=== PATIENT | female | born 1990 | race Caucasian/White ===

== ENCOUNTER 2017-11-29 04:00 | Inpatient (IN) ==
[2017-11-29] MEDS ORDERED: miSOPROStol 25 MCG TABLET ONE (05:00)
[2017-11-29] MEDS ORDERED: miSOPROStol 25 MCG TABLET PO ONE (11:29)
[2017-11-29] MEDS ORDERED: Oxytocin 20 units/ LR 1000 mL 20 UNIT/1,000 ML BAG IVC ONE (12:18)
[2017-11-29] MEDS ORDERED: Ringers Solution, Lactated 1,000 ML ONE ×3 (12:18→22:42)
[2017-11-29] MEDS ORDERED: miSOPROStol 25 MCG TABLET VG PRN (12:32)
[2017-11-29] MEDS ORDERED: Oxytocin 20 units/ LR 1000 mL 20 UNIT/1,000 ML BAG IVC SCH (12:45)
--- NOTE | 2017-11-29 12:45 | OB/GYN History & Physical ---
Date of Encounter: 11/29/17 Time of Encounter: 12:43 Assessment and Plan (1) Elective induction of labor planned Current visit: Yes Status: Acute 27 y/o @ 40+2 weeks IOL, GBS neg she has received cytotec x 25mcg per vagina x 1, she is now on pitocin monitor strip, anticipate History of Present Illness HPI: Ms. Bolden is a 27 year old female @ 40+ 2 weeks who presents to the office for IOL. She does not report LOF, VB or ctxs, feels good FM, GBS neg. Aside from gallbladder issues, her course was uncomplicated. Past Med Surg Social Fam HX - Past Medical History Medical history: no medical history Psychiatric history: anxiety - Past Surgical History Surgical History: no surgical history - Social History Smoking Status: Never smoker Alcohol use: none Drug use: none - Family History Father Living Status: Still Living Hx Family Cardiac Disorders: Yes (HTN) Hx Family Respiratory Disorders: No Hx Family Cancer: No Hx Family GI Disorders: No Hx Family Genitourinary Disorders: No Hx Family Endocrine Disorder: Yes (DM) Hx Family Musculoskeletal Disorders: No Hx Family Neuromuscular Disorders: No Hx Family Neurologic Disorders: No Hx Family HEENT Disorders: No Hx Family Autoimmune Disorders: No Hx Family Reproductive Disorders: No Hx Family Psychosocial Disorders: No Hx Family Medical Disorders: No Obstetrical History - Pregnancies : 1 Para: 0 Medications and Allergies Vits #90/Iron Fum/FA [ Formula Tablet] 1 tab PO DAILY 11/29/17 [History] Allergy/AdvReac Type Severity Reaction Status Date / Time No Known Allergies Allergy Verified 07/17/17 10:42 Review of System OB All systems PM: reviewed and no additional remarkable complaints except as stated Exam - Constitutional Constitutional: no acute distress - HEENT HEENT: PERRL - Neck Neck exam: full ROM - Lungs Respiratory exam: CTAB - Cardiovascular Cardiovascular exam: RRR - Abdomen Abdomen: Present: gravid - Cervix Dilation: 2 Results All other labs normal.
--- NOTE | 2017-11-29 14:58 | OB Labor Progress Note ---
Date of Encounter: 11/29/17 Time of Encounter: 14:56 Labor Progress Note - Subjective Subjective: Dr. Sanches called, requesting a louis catheter to be placed IOL on his patient. Discussed POC and procedure with patient. Patient denies any questions or concerns. - Cervix Cervix: 2/70/-1 - Heart Tones Heart Tones: 135 bpm moderate variability +15x15 accels no decels noted. Cat. 1 tracing. - [place]: 1.5-4 min apart - Interventions Interventions: SVE, Placement of louis catheter successful. 40cc sterile water placed in balloon. Patient tolerated well. - Plan Plan: Continue labor management Patient may have Nubain or epidural when desires Dr. Sanches updated on patient's status.
[2017-11-29] MEDS ORDERED: *HR* Nalbuphine 10 MG/ML AMPUL IVP ONE (14:59)
[2017-11-29 18:16] LABS: Basophils % 0.3 %; Eosinophils # 0.1 K/mcL (0.0-0.6); Eosinophils % 1.2 %; Hematocrit 32.8 % (35.3-44.9); Hemoglobin 11.1 g/dL (11.5-15.4); Immature Granulocytes % 0.7 % (0-4); Immature Platelets 8.7 % (1.1-6.1); Lymphocytes # 1.9 K/mcL (0.6-4.6); Lymphocytes % 15.6 %; Mean Corpuscular HGB Conc 33.8 g/dL (31.6-35.5); Mean Corpuscular Hemoglobin 29.3 pg (28.0-33.3); Mean Corpuscular Volume 86.5 fL (83.0-100.0); Mean Platelet Volume 11.1 fL (9.4-12.4); Monocytes # 0.9 K/mcL (0.0-1.3); Monocytes % 7.1 %; Platelet Count 256 K/mcL (140-400); Red Blood Count 3.79 M/mcL (3.82-4.97); Red Cell Distribution Width 14.1 % (11.5-14.5); Segmented Neutrophils % 75.1 %
--- NOTE | 2017-11-29 18:33 | OB Labor Progress Note ---
Date of Encounter: 11/29/17 Time of Encounter: 18:30 Labor Progress Note - Subjective Subjective: patient is doing well - Vital Signs Vital Signs: VSS - Cervix Cervix: 5cm - Heart Tones Heart Tones: CAT 1 - [place] Col[place]: Q1-4 - Plan Plan: continue pitocin, now on 4 ok for epidural if she desires anticipate
[2017-11-29] MEDS ORDERED: Epidural Premix (fent/bupiv) 110 ML EP SCH (18:45)
--- NOTE | 2017-11-29 18:45 | Anesthesia Evaluation PreOp ---
Addendum entered and electronically signed by Rosanna Rivera CRNA 12/07/17 12:20: Addendum entered and electronically signed by Kai Smith CRNA 11/30/17 15: 01: Notified around 2:15p that Dr. Sanches will be performing C section for arrest of descent. Spoke with patient regarding her anesthestic options: epidural vs. GETA and patient prefers epidural plan A, GETA plan B. Verbal consent obtained. Patient appears comfortable with new GURINDER in place. VSS. 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) Other Medical History: Denies Any Significant HX : Yes Test: Positive Alcohol Use: none Drug use: none Medications and Allergies Vits #90/Iron Fum/FA [ Formula Tablet] 1 tab PO DAILY 11/29/17 [History] Allergy/AdvReac Type Severity Reaction Status Date / Time No Known Allergies Allergy Verified 07/17/17 10:42 - Meds/Allergy Pre-op Review Medications Reviewed: Yes Allergies Reviewed: Yes Beta Blockers on Current Med List: No Anesthesia Results - Labs 11/29/17 05:50 Anesthesia Exam - HEENT Pupil (Motor): Pupils equal Mallampati: II Teeth: Normal Oral Opening: Greater than 3 - LONG TERM CARE SOCIAL WORKER LOC: Oriented LONG TERM CARE SOCIAL WORKER Motor: Normal RUE, Normal LUE, Normal RLE, Normal LLE, Normal Face LONG TERM CARE SOCIAL WORKER Sensory: Normal: RUE, LUE, RLE, LLE, Face - Cardiac Rhythm: Regular Murmur: None JVD: No Carotid Bruit: No - Pulmonary Breath Sounds: bilateral Clear Respiratory Effort: Symmetrical Anesthesia Assess/Plan ASA Score: 2 Modified Leroy Scale for Level of Consciousness: Cooperative, oriented, and tranquil Anesthetic Plan: Regional Autologous Blood: No Monitoring Plan: Standard Monitors
--- NOTE | 2017-11-29 19:22 | OB Labor Progress Note ---
Date of Encounter: 11/29/17 Time of Encounter: 19:20 Labor Progress Note - Subjective Subjective: patient is doing well - Vital Signs Vital Signs: VSS - Cervix Cervix: 5cm/80% - Heart Tones Heart Tones: CAT 1 - [place]: irregular - Plan Plan: ok for epidural, AROM'ed with clear fluid anticipate
[2017-11-29 19:28] LABS: Amphetamine Screen,Urine Negative ng/mL (Cutoff=1000); Barbiturate Screen,Urine Negative ng/mL (Cutoff=200)
[2017-11-29 19:29] LABS: Benzodiazepines Screen,Urine Negative ng/mL (Cutoff=300); Cannabinoid Screen,Urine Negative ng/mL (Cutoff = 50); Cocaine Screen,Urine Negative ng/mL (Cutoff= 300); Opiate Screen,Urine Negative ng/mL (Cutoff=300); Phencyclidine Screen,Urine Negative ng/mL (Cutoff=25)
[2017-11-29] MEDS ORDERED: Bupivacaine-MPF 0.25% 10 ML VIAL ONE (20:15)
[2017-11-29] MEDS ORDERED: *HR* FentaNYL (PF) 100 MCG/2 ML VIAL ONE (20:16)
--- NOTE | 2017-11-29 20:54 | Anesthesia Procedures ---
Date of Encounter: 11/29/17 Time of Encounter: 20:20 (GURINDER completed at 2042) Procedures: Anesthesia - Epidural/Spinal Patient ID/Chart reviewed: Yes Patient examined: Yes OB Eval: Gestational age: 40.2 OB Eval: : 1 OB Eval: Hx Para: 0 OB Eval: Contractions: Non-stressed pattern Consent Obtained: Yes Site Prep: Aseptic Technique, Sterile prep and drape, Povidone-Iodine 1% Patient position: upright Amount of Local Anesthetic used: 3 Touhy Needle Gauge: 18 Touhy Needle Depth (cm): 6 Catheter Depth at Skin (cm): 8 Test Dose (1.5% Lido + Epi): Volume given (mls): 3 Test Dose Result: Negative Loading Dose: 0.25% Marcaine (mls): 8 Loading Dose: Fentanyl (mcg): 100 Loading Dose: Other: nacl 10ml Loading Dose Administered: Thru Catheter Infusion Rate (mls/hr): [address]: Tegaderm Interspace Used: L4-L5 Loss of Resistance (VANNA): Yes Blood: No CSF: No Paresthesia: No Procedure: GURINDER with ease no adverse effects. tolerated procedure well. VSS and FHTS throughout. see nursing record. states no pain with contractions after epidural placement.
--- NOTE | 2017-11-29 22:44 | OB Labor Progress Note ---
Date of Encounter: 11/29/17 Time of Encounter: 22:42 Labor Progress Note - Subjective Subjective: patient doing well - Vital Signs Vital Signs: VSS - Cervix Cervix: 5 - Heart Tones Heart Tones: CAT 1 - Plan Plan: cont pitocin (now @ 8) anticipate
[2017-11-29] MEDS ORDERED: Famotidine 20 MG/2 ML VIAL IVP PRN (22:55)
[2017-11-29] MEDS ORDERED: Naloxone 0.4 MG/ML INJ IVP PRN (22:55)
[2017-11-29] MEDS ORDERED: Metoclopramide 10 MG/2 ML VIAL IVP PRN (22:55)
[2017-11-29] MEDS ORDERED: Ringers Solution, Lactated 1,000 ML IVC SCH (23:00)
[2017-11-29] MEDS: Ondansetron 4 MG/2 ML VIAL IVP PRN (23:08)
--- NOTE | 2017-11-30 05:23 | OB Labor Progress Note ---
Date of Encounter: 11/30/17 Time of Encounter: 05:22 Labor Progress Note - Subjective Subjective: patient is comfortable, fully dilated - Vital Signs Vital Signs: VSS - Cervix Cervix: fully dilated - Heart Tones Heart Tones: CAT 1 - Plan Plan: allow to labor down, anticipate
[2017-11-30] MEDS ORDERED: Acetaminophen 325 MG TABLET PO ONE (07:01)
[2017-11-30] MEDS ORDERED: Piperacillin/Tazobactam 3.375 GM in 0.9 % Sodium Chloride Mini Bag 100 ML IVPB SCH (08:40)
[2017-11-30] MEDS ORDERED: *HR* FentaNYL (PF) 100 MCG/2 ML VIAL ONE ×2 (09:17→11:57)
[2017-11-30] MEDS ORDERED: Lidocaine -MPF 2% 5 ML VIAL ONE ×2 (09:17→11:58)
--- NOTE | 2017-11-30 09:26 | OB Labor Progress Note ---
Date of Encounter: 11/30/17 Time of Encounter: 09:24 Labor Progress Note - Subjective Subjective: she was pushing and had a period of late decels - Vital Signs Vital Signs: temp 101 - Cervix Cervix: fully - Heart Tones Heart Tones: CAt 2 tracing - Plan Plan: pitocin stopped, oxygen, maternal positioning, heart rate recovered, Zosyn to start for fevers of 101
--- NOTE | 2017-11-30 09:43 | Anesthesia Progress Note ---
Date of Encounter: 11/30/17 Time of Encounter: 09:40 Anesthesia Note - Note Note: Called to patient bedside to evaluate breakthrough labor pain. Patient reports pain as 10/10 RLQ with contractions. Catheter appears to have been inadvertantly withdrawn to 6cm and clear fluid noted to be leaking around catheter insertion site. Was able to advance catheter to 7cm ronald. 50mcg fentanyl + 10mL of 2% administered. No fluid noted to be leaking out during administration. Patient does report mild improvement in pain score. Unable to administer any more meds because of SBP in the 90s. 11/30/17 09:40
[2017-11-30] MEDS: Ondansetron 4 MG/2 ML VIAL IVP PRN (11:39)
[2017-11-30] MEDS ORDERED: Lidocaine 1% 20 ML MDV ONE (11:57)
[2017-11-30] MEDS ORDERED: Lidocaine -MPF 1% 5 ML AMPUL ONE (11:58)
--- NOTE | 2017-11-30 12:59 | OB Labor Progress Note ---
Date of Encounter: 11/30/17 Time of Encounter: 12:54 Labor Progress Note - Subjective Subjective: Patient is still pushing. She has been pushing since 7-8AM but with many periods of rest. Epidural has been turned down. - Vital Signs Vital Signs: VSS - Cervix Cervix: +1 - Heart Tones Heart Tones: CAT 1 - Plan Plan: From the last time I checked her at 9AM, it looks like the station has not moved, I did an U/S and fetus is OP, I counseled the patient that seeing how long she has been pushing, I will give her another hr and if no progress, I recommended a with indication as arrest of descent, she agrees. The bladder louis was at the urethra when I examined her and had bruised the urethra so I removed it.
--- NOTE | 2017-11-30 14:01 | Anesthesia Progress Note ---
Date of Encounter: 11/30/17 Time of Encounter: 13:00 Anesthesia Note - Note Note: Called to patient bedside to evaluate breakthrough pain. 50mcg fentanyl administered through catheter with no relief in pain. With catheter at 6cm ronald at skin, determined tip to no longer be in epidural space so decision made to remove catheter. after explaining R/B/A of new catheter placement, patient agrees to proceed with another GURINDER placement. VSS 11/30/17 13:59
--- NOTE | 2017-11-30 14:04 | Anesthesia Procedures ---
Date of Encounter: 11/30/17 Time of Encounter: 14:02 Procedures: Anesthesia - Epidural/Spinal Patient ID/Chart reviewed: Yes Patient examined: Yes OB Eval: Gestational age: 40 weeks 3 days OB Eval: : 1 OB Eval: Hx Para: 0 OB Eval: Dilated at (cm): 10 OB Eval: Contractions: Non-stressed pattern Consent Obtained: Yes Supplemental Oxygen: None/Room Air Site Prep: Aseptic Technique, Sterile prep and drape, Povidone-Iodine 1% Patient position: upright Local Anesthetic: Lidocaine 1% Amount of Local Anesthetic used: 3 Touhy Needle Gauge: 18 Touhy Needle Depth (cm): 5 Catheter Depth at Skin (cm): 10 Test Dose (1.5% Lido + Epi): Volume given (mls): 5 Test Dose Result: Negative Loading Dose: Fentanyl (mcg): 100 Loading Dose: Other: 10mL of 1% lidocaine Loading Dose Administered: Thru Catheter Infusion Rate (mls/hr): [address]: Tegaderm, Tape Interspace Used: L4-L5 Loss of Resistance (VANNA): Yes Blood: No CSF: No Paresthesia: No Procedure: successful on 1st interspace; patient tolerated procedure well; VSS Vitals + FHT's: see Juani DELGADO's electronic records for VS entry
[2017-11-30] MEDS ORDERED: Ringers Solution, Lactated 1,000 ML ONE (14:24)
[2017-11-30] MEDS ORDERED: *HR* Oxytocin 10 UNIT/ML VIAL IM ONE (14:47)
[2017-11-30] MEDS ORDERED: Naloxone 0.4 MG/ML INJ IVP PRN ×2 (15:03→18:05)
[2017-11-30] MEDS ORDERED: Ondansetron 4 MG/2 ML VIAL IVP PRN ×2 (15:03→18:05)
[2017-11-30] MEDS ORDERED: Acetaminophen IV 1,000 MG/100 ML INFUS..BTL IVPB ONE (15:03)
[2017-11-30] MEDS ORDERED: *HR* Promethazine 25 MG/ML VIAL IVP PRN (15:03)
[2017-11-30] MEDS ORDERED: *HR* OxyCODONE Immed Rel 5 MG TABLET PO PRN (15:03)
[2017-11-30] MEDS ORDERED: *HR* HYDROmorphone 2 MG TABLET PO PRN (15:03)
[2017-11-30] MEDS ORDERED: *HR* Morphine Sulfate/PF 10 MG/10 ML AMPUL ONE (15:06)
[2017-11-30] MEDS ORDERED: *HR* Phenylephrine 10 MG/ML VIAL ONE (15:34)
--- NOTE | 2017-11-30 16:16 | Anesthesia Evaluation Post Op ---
Date of Encounter: 11/30/17 Time of Encounter: 16:15 - Vital Signs Vital Signs: 109/72, HR 117, SpO2 96%, T98.5F, RR 18 - Lungs Lungs: Clear Ascult./Percussion - Airway Airway: Non-obstructed - Cardiovascular Regular Rate - Mental Status Mental Status: Alert & Oriented, Answers Appropriately - Pain Pain Scale: 0 Pain Scale used: Numeric (1 - 10) - Nausea Vomiting Nausea Vomiting: Not Present - Hydration Hydration: NPO, Obrien catheter - Discharge PostOp Status: Transfer Patient to floor
--- NOTE | 2017-11-30 16:35 | OB/GYN Procedure Note ---
Section - Date of procedure: 11/30/17 Preop diagnosis: arrest of descent Post-op diagnosis: same Procedure: primary low transverse Surgeon: Leia Sanches Was there an bus assistant present: Yes Wrestling Coach: Vicki Dennis Anesthesia Type: Epidural section complications: none Disposition: L&D Recovery Room Specimens: Placenta, Cord segment - Narrative Narrative: The patient was taken to the operating room where epidural anesthesia was found to be adequate. The patient was prepped and draped in the usual sterile fashion in the dorsal supine position with a left-salas tilt. A Pfannenstiel skin inci lynne was made with the scalpel and carried through to the underlying layer of fascia. The fascia was incised in the midline and extended laterally bluntly. The superior aspect of the fascial incision was elevated, and the underlying rectus muscles were dissected off bluntly. Attention was then turned to the inferior aspect of the fascial incision and the underlying rectus muscles were dissected off bluntly as well. The rectus muscles were dissected in the midline. The peritoneum was bluntly dissected, entered, and extended superiorly and inferiorly with good visualization of the bladder. The bladder blade was inserted. The lower uterine segment was incised in a transverse fashion using the scalpel and extended using manual traction. Meconium stained fluid was noted. The was subsequently delivered atraumatically. The cord was clamped and cut. The infant was subsequently handed to the awaiting nursery nurse. The uterus was exteriorized and cleared of all clots and debris. The nicole rine incision was repaired in 2 layers using 0 vicryl suture. Hemostasis was visualized. The uterus was returned to the abdomen. The uterine incision was reexamined and was noted to be hemostatic. The fascia was closed with 0 Vicryl, the subcutaneous layer was closed with 3-0 vicryl, and the skin was closed with 4-0 vicryl. Sponge, lap, and instrument counts were correct x2. The patient was stable at the completion of the procedure and was subsequently transferred to the recovery room in stable condition.
[2017-11-30] MEDS ORDERED: Sennosides 8.6 MG TABLET PO PRN (18:05)
[2017-11-30] MEDS ORDERED: Simethicone 80 MG TAB.CHEW PO PRN (18:05)
[2017-11-30] MEDS ORDERED: Metoclopramide 10 MG/2 ML VIAL IVP PRN (18:05)
[2017-11-30] MEDS: Oxytocin 20 units/ LR 1000 mL 20 UNIT/1,000 ML BAG IVC SCH (18:44)
[2017-11-30] MEDS: *HR* HYDROmorphone (PF) 1 MG/ML SYRINGE IVP PRN (19:14)
[2017-12-01] MEDS: *HR* HYDROmorphone (PF) 1 MG/ML SYRINGE IVP PRN ×2 (00:02→06:30)
[2017-12-01] MEDS: *HR* OxyCODONE/APAP 5/325 TABLET PO PRN ×3 (02:16→13:56)
[2017-12-01 02:58] LABS: Basophils # 0.1 K/mcL (0.0-0.2); Basophils % 0.3 %; Eosinophils % 0.2 %; Hematocrit 32.2 % (35.3-44.9); Hemoglobin 10.9 g/dL (11.5-15.4); Immature Granulocytes % 0.5 % (0-4); Lymphocytes # 1.3 K/mcL (0.6-4.6); Lymphocytes % 5.5 %; Mean Corpuscular HGB Conc 33.9 g/dL (31.6-35.5); Mean Corpuscular Hemoglobin 28.6 pg (28.0-33.3); Mean Platelet Volume 11.2 fL (9.4-12.4); Monocytes % 3.6 %; Platelet Count 238 K/mcL (140-400); Red Blood Count 3.81 M/mcL (3.82-4.97); Red Cell Distribution Width 14.4 % (11.5-14.5); Segmented Neutrophils % 89.9 %
[2017-12-01 02:59] LABS: Eosinophils # 0.1 K/mcL (0.0-0.6); Mean Corpuscular Volume 84.5 fL (83.0-100.0); Monocytes # 0.8 K/mcL (0.0-1.3)
[2017-12-01] MEDS: Oxytocin 20 units/ LR 1000 mL 20 UNIT/1,000 ML BAG IVC SCH (03:56)
[2017-12-01] MEDS: Ibuprofen 600 MG TABLET PO PRN ×2 (03:57→17:26)
[2017-12-01] MEDS: Prenatal Vit/FA 1 EACH TABLET PO SCH (08:14)
--- NOTE | 2017-12-01 09:30 | OB/GYN Progress Note ---
Date of Encounter: 12/01/17 Time of Encounter: 09:27 - Assessment and Plan (1) Status post primary low transverse section Current Visit: Yes Status: Acute patient is postop day one meeting day 1 milestones continue routine postop/ care (2) Breast feeding status of mother Current Visit: Yes Status: Acute consult prn Subjective - Subjective Principal diagnosis: status post primary Interval history: Patient sitting up in bed. Patient voiding without difficulty. Patient reports pain is well controlled with pain medication. Patient is tolerating regular diet. Patient reports passing flatus. Patient reports: appetite normal, voiding normally, pain well controlled, ambulating normally : doing well, nursing well Objective - Vital Signs Latest vital signs: Vital Signs Temp Pulse Pulse Resp BP Pulse Ox 12/01/17 09:00 128 20 109/76 97 12/01/17 08:19 117 17 12/01/17 07:00 98 F 125 20 109/64 94 12/01/17 05:34 98.3 F 131 14 109/61 94 12/01/17 03:07 71 18 123/71 97 12/01/17 02:00 98.5 F 140 14 124/71 93 12/01/17 00:00 98.6 F 137 14 119/70 97 11/30/17 21:16 120 120 18 129/74 95 11/30/17 20:00 97.6 F 120 14 117/71 96 11/30/17 19:15 98.3 F 96 96 16 112/78 98 11/30/17 18:30 100 11/30/17 18:00 98.9 F 110 16 123/73 96 Intake and Output 11/30/17 12/01/17 12/01/17 23:59 07:59 15:59 Intake Total 1000 / 1000 240 / 240 Output Total 200 / 200 200 / 200 Balance -200 / -200 1000 / 1000 40 / 40 Intake: IV Fluids 1000 / 1000 Pitocin 20 unit In 1,000 ml @ 1000 / 1000 125 mls/hr IVC .Q8H NADIA Rx#: [id number] Oral 240 / 240 Output: Urine 200 / 200 Catheter 200 / 200 Other: Meal Breakfast Percent of Meal Consumed 100% Stool Characteristics Normal for Patient Weight 101.7 kg 221.5 kg Patient Weight 12/01/17 23:59 Weight 221.5 kg - Exam Lungs: bilateral: normal Chest: Normal S1, Normal S2 Extremities: Present: normal Abdomen: Present: normal appearance, soft Incision: Present: normal, dry, intact, dressed (medipore dressing) Fundal Height: 2 (U/2) Comments: lochia is light without clots - Labs Labs: Laboratory Results - last 24 hr 12/01/17 02:43 WBC 23.3 H D RBC 3.81 L Hgb 10.9 L Hct 32.2 L MCV 84.5 MCH 28.6 MCHC 33.9 RDW 14.4 Plt Count 238 MPV 11.2 Immature Gran % 0.5 Seg Neutrophils % 89.9 Lymphocytes % 5.5 Monocytes % 3.6 Eosinophils % 0.2 Basophils % 0.3 Neutrophils # 21.0 H Lymphocytes # 1.3 Monocytes # 0.8 Eosinophils # 0.1 Basophils # 0.1
[2017-12-01 09:42] LABS: Basophils # 0.1 K/mcL (0.0-0.2); Basophils % 0.3 %; Eosinophils # 0.1 K/mcL (0.0-0.6); Eosinophils % 0.4 %; Hematocrit 34.2 % (35.3-44.9); Hemoglobin 11.4 g/dL (11.5-15.4); Immature Granulocytes % 0.8 % (0-4); Lymphocytes # 1.5 K/mcL (0.6-4.6); Lymphocytes % 6.2 %; Mean Corpuscular HGB Conc 33.3 g/dL (31.6-35.5); Mean Corpuscular Hemoglobin 28.6 pg (28.0-33.3); Mean Corpuscular Volume 85.9 fL (83.0-100.0); Mean Platelet Volume 11.4 fL (9.4-12.4); Monocytes # 0.9 K/mcL (0.0-1.3); Monocytes % 3.8 %; Platelet Count 262 K/mcL (140-400); Red Blood Count 3.98 M/mcL (3.82-4.97); Red Cell Distribution Width 14.4 % (11.5-14.5); Segmented Neutrophils % 88.5 %
[2017-12-01] MEDS: Acetaminophen 325 MG TABLET PO PRN ×2 (12:00→20:21)
--- NOTE | 2017-12-01 13:19 | Event Note ---
Date of Encounter: 12/01/17 Time of Encounter: 13:17 Notified of patient's heart rate. Patient is afebrile. Denies any chest pain or shortness of breath. Discussed Vital signs with Dr. Moreno. Per Dr. Moreno's recommendation Will start Antibiotics and if patient continues to be tachycardic will add a consult to the hospitalist.
[2017-12-01] MEDS: Azithromycin 250 MG TABLET PO SCH (13:56)
[2017-12-01] MEDS: CeFAZolin Premix DUPLEX 2,000 MG/50 ML BAG IVPB SCH ×2 (13:57→21:19)
[2017-12-01] MEDS ORDERED: Isovue-370 500 ML INFUS..BTL IV ONE (21:27)
--- NOTE | 2017-12-01 21:59 | Internal Medicine Consult Note ---
Date of Encounter: 12/01/17 Time of Encounter: 21:10 - Assessment and plan (1) Pleuritic chest pain Current Visit: Yes Status: Acute Assessment and plan: 1. Strong clinical suspicion for PE. 2. I ordered STAT CTA chest -- suboptimal study. No central PE, but peripheral PE not excluded. 3. I called and discussed with Dr. Moreno after above findings. Given a high clinical index of suspicion for PE, I am inclined to start heparin drip. He concurs and agrees with my recommendation. I called and spoke with RN asking her to monitor for any increased vaginal bleeding or bleeding from wound. 4. Doppler of legs ordered. 5. Repeat CTA vs V/Q scan may be necessary. (2) Pneumonia Current Visit: Yes Status: Suspected Assessment and plan: 1. Given fever, chest pain, leukocytosis, and vague cough, I am ordering blood culture and antibiotics to cover suspected pneumonia. 2. Oxygen as needed for support. 3. Will order albuterol PRN wheezing. Qualifiers: Pneumonia type: due to unspecified organism Laterality: unspecified laterality Lung location: unspecified part of lung Qualified Code(s): J18.9 - Pneumonia, unspecified organism (3) S/P Current Visit: Yes Status: Acute Assessment and plan: 1. Will defer to WELDING ENGINEER. (4) DVT prophylaxis Current Visit: Yes Status: Acute Assessment and plan: 1. Heparin drip as above. Internal Medicine - CN: HPI - Data of Consult Consult date: 12/01/17 Requesting Physician: Leia Sanches MD - Consult Narrative Reason for consult: tachycardia History of present illness: Ms. Bolden is a 27 year old female who was roughly 24 hours from C- section delivery of her first child yesterday. She was noted to be tachycardic today and complaining of some pleuritic type chest pain. Hospitalist consult was requested by OB. I saw patient in consultation this evening and she states that she has been having pleuritic-type chest pain with deep inspiration for roughly 24-48 hours. She did not notice her heart rate being fast. She denies any palpitations. She complains of dyspnea with her pleuritic chest pain. She states she had a fever yesterday, but I do not see any documentation of fevers. She has had some slight cough. She denies any productive sputum. She denies a ny vomiting, diarrhea, or nausea. was uncomplicated. She was not on any prolonged bed rest. She worked up until her due date. She denies any prolonged travel or personal or family history of clots. I reviewed her labs and note that significant jump in leukocytosis. I spoke with her OB, and he does not feel she has endometritis. Given her history, I am concerned about both pulmonary embolus and/or pneumonia. I requested transfer to a telemetry unit and a STAT CTA of the chest to rule out PE. I advised patient that she will likely have to "pump and dump" her breast milk due to the contrast and radiation exposure. If necessary, Dr. Moreno stated we can anticoagulate in the setting of PE. Past Med Surg Social Fam HX - Past Medical History Attestation: Yes The following information was validated with the patient. Source: patient, obtained from family Medical history: no medical history Psychiatric history: anxiety - Past Surgical History Surgical History: - Social History Smoking Status: Never smoker Alcohol use: none Drug use: none Current living situation: Home, With Family Activity Level: Independent ambulation Recent Out of Country Travel Within the Last 8 Weeks: No - Family History Father Living Status: Still Living Hx Family Cardiac Disorders: Yes (HTN) Hx Family Respiratory Disorders: No Hx Family Cancer: No Hx Family GI Disorders: No Hx Family Genitourinary Disorders: No Hx Family Endocrine Disorder: Yes (DM) Hx Family Musculoskeletal Disorders: No Hx Family Neuromuscular Disorders: No Hx Family Neurologic Disorders: No Hx Family HEENT Disorders: No Hx Family Autoimmune Disorders: No Hx Family Reproductive Disorders: No Hx Family Psychosocial Disorders: No Hx Family Medical Disorders: No - Additional Family History Additional family history: No FH PE/DVT - Constitutional Constitutional: fever(s), no chills, no night sweats - Cardiovascular Cardiovascular ROS IM: chest pain (pleuritic), no palpitations, no syncope - Respiratory Respiratory: dyspnea, pain on inspiration, pain with cough, no hemoptysis, no chest congestion, no excessive phlegm production, no change in phlegm color - Gastrointestinal Gastrointestinal: no abdominal pain, no diarrhea, no hematemesis, no hematochezia, no melena, no nausea, no vomiting - Genitourinary Genitourinary: no dysuria, no flank pain, no hematuria - Musculoskeletal Musculoskeletal ROS IM: no arthralgias, no back pain - Integumentary Integumentary IM: no rash, no jaundice - Neurological Neurological ROS: no dizziness, no focal weakness, no frequent falls, no headache(s) - Psychiatric Psychiatric: no anxiety, no depression - Endocrine Endocrine IM: no polydipsia, no polyuria - Hematologic/Lymphatic Hematologic/Lymphatic: no easy bruising, no lymphadenopathy - Allergic/Immunologic Allergic/Immunologic: no wheezing, no GI upset with certain foods Internal Medicine - CN: Meds Vits #90/Iron Fum/FA [ Formula Tablet] 1 tab PO DAILY 11/29/17 [History] Allergy/AdvReac Type Severity Reaction Status Date / Time No Known Allergies Allergy Verified 07/17/17 10:42 Hospitalist - CN: Exam - Constitutional Vitals: Temp Pulse Resp BP Pulse Ox 98.4 F 122 14 112/78 96 12/01/17 19:40 12/01/17 19:40 12/01/17 19:40 12/01/17 19:40 12/01/17 19:40 General appearance IM: Present: cooperative, mild distress (comlaining of pleu ritic pain with deep inspiration), A&O X 3, pleasant Exam: + splinting on deep inspiration - Head Head exam: Present: atraumatic, normal inspection - Eye Eye exam: Present: EOMI, PERRL. Absent: scleral icterus - ENT ENT exam: Present: mucous membranes moist, normal exam, normal oropharynx - Neck Neck exam general surgery: Present: full ROM, supple. Absent: tenderness, nuchal rigidity, thyromegaly - Respiratory Respiratory exam: Present: respiratory distress (mild), rhonchi, tachypnea. Absent: chest wall tenderness, rales, wheezes Additional comments: + splinting in right upper chest with deep inspiration; chest pain is not reproducible on palpation - Cardiovascular Cardiovascular exam IM: Present: +S1, +S2, tachycardia. Absent: diastolic murmur, JVD, systolic murmur - GI/Abdominal GI/Abdominal exam IM: Present: normal bowel sounds, soft. Absent: guarding, tenderness - Extremities Exam Extremities exam IM: Present: calf tenderness (mild bilateral), pedal edema (bilateral), warm, radial pulses palpable and symmetrical - Back Exam Back exam: Present: normal inspection. Absent: CVA tenderness (L), CVA tenderness (R) - Neurological Exam Neurological exam: Present: alert, CN II-XII intact, oriented X3, no focal deficits, strengths equal and symetr throughout - Psychiatric Psychiatric exam: Present: normal affect, normal mood - Skin Skin exam IM: Present: dry, warm. Absent: rash Internal Medicine - CN: Reslt - Labs CBC & Chem 7: 12/01/17 08:03 Labs: Short CBC 12/01/17 12/01/17 Range/Units 02:43 08:03 WBC 23.3 H D 23.7 H (4.3-11.1) K/mcL Hgb 10.9 L 11.4 L (11.5-15.4) g/dL Hct 32.2 L 34.2 L (35.3-44.9) % Plt Count 238 262 (140-400) K/mcL Neutrophils # 21.0 H 21.0 H (1.6-8.9) K/mcL - EKG Data Prior EKG available for review: no EKG comments: 12/01/17 23:14 sinus tachycardia; no acute ST-T changes Consult Discharge Plan - Plan Referrals: Jonelle Davies, FAMILY MEDICINE PHYSICIAN [Primary Care Provider] -
[2017-12-01] MEDS: 0.9 % Sodium Chloride 1,000 ML IVC SCH (22:53)
[2017-12-01] MEDS ORDERED: *HR* Heparin 5,000 UNIT/ML VIAL IVP PRN ×2 (23:04)
[2017-12-01] MEDS ORDERED: *HR* Heparin 5,000 UNIT/ML VIAL IVP ONE (23:04)
[2017-12-01 23:42] LABS: Hematocrit 28.8 % (35.3-44.9); Mean Corpuscular HGB Conc 33.7 g/dL (31.6-35.5); Mean Corpuscular Hemoglobin 28.8 pg (28.0-33.3); Mean Corpuscular Volume 85.5 fL (83.0-100.0); Platelet Count 259 K/mcL (140-400); Prothrombin Time 11.4 Seconds (9.4-12.1); Red Blood Count 3.37 M/mcL (3.82-4.97); Red Cell Distribution Width 14.7 % (11.5-14.5)
[2017-12-01 23:43] LABS: Hemoglobin 9.7 g/dL (11.5-15.4)
[2017-12-02] MEDS: Heparin 25,000 UNIT/500 ML D5W 25,000 UNIT/500 ML BAG IVC SCH ×2 (00:12→17:08)
[2017-12-02] MEDS: *HR* OxyCODONE/APAP 5/325 TABLET PO PRN ×5 (04:25→22:57)
[2017-12-02 07:01] LABS: Basophils # 0.1 K/mcL (0.0-0.2); Basophils % 0.3 %; Eosinophils # 0.2 K/mcL (0.0-0.6); Eosinophils % 1.1 %; Hematocrit 27.5 % (35.3-44.9); Hemoglobin 9.2 g/dL (11.5-15.4); Immature Granulocytes % 1.2 % (0-4); Lymphocytes # 1.4 K/mcL (0.6-4.6); Lymphocytes % 7.6 %; Mean Corpuscular HGB Conc 33.5 g/dL (31.6-35.5); Mean Corpuscular Hemoglobin 28.9 pg (28.0-33.3); Mean Corpuscular Volume 86.5 fL (83.0-100.0); Mean Platelet Volume 10.6 fL (9.4-12.4); Monocytes # 0.7 K/mcL (0.0-1.3); Monocytes % 3.5 %; Neutrophils # 16.4 K/mcL (1.6-8.9); Platelet Count 240 K/mcL (140-400); Red Blood Count 3.18 M/mcL (3.82-4.97); Red Cell Distribution Width 14.6 % (11.5-14.5); Segmented Neutrophils % 86.3 %
[2017-12-02 07:22] LABS: Alanine Aminotransferase 10 Units/L (7-52); Albumin 2.7 g/dL (3.5-5.7); Alkaline Phosphatase 111 Units/L (34-104); Aspartate Amino Transferase 22 Units/L (13-39); BUN/Creatinine Ratio 19 (6-26); Bilirubin,Total 0.2 mg/dL (0.3-1.0); Blood Urea Nitrogen 16 mg/dL (6-20); Calcium 8.3 mg/dL (8.6-10.3); Carbon Dioxide 22 mEq/L (23-29); Chloride 108 mEq/L (98-107); Globulin 2.7 g/dL (2.4-3.5); Glucose 101 mg/dL (70-105); Osmolality,Calculated 285 (280-300); Potassium 3.7 mEq/L (3.5-5.1); Sodium 137 mEq/L (136-145); Total Protein 5.4 g/dL (6.4-8.9); eGFR For Non-African Americans > 60 (> 60)
[2017-12-02] MEDS: Prenatal Vit/FA 1 EACH TABLET PO SCH (07:46)
[2017-12-02] MEDS: Acetaminophen 325 MG TABLET PO PRN ×2 (07:46→20:21)
[2017-12-02] MEDS: Azithromycin 250 MG TABLET PO SCH (07:47)
--- NOTE | 2017-12-02 09:41 | Event Note ---
Date of Encounter: 12/02/17 Time of Encounter: 09:37 Мария is a 27-year-old female 1, status post section for failure to descend and nonreassuring tracing. She is currently postoperative day #2. On postoperative day 1 patient began complaining of chest pain, fever cough, she was tachycardic. Patient was seen by hospitalist who felt that she had a high index of suspicion for pulmonary was started on heparin drip. CTA was ordered. She is now on a heparin drip and Percocet for pain. She has a follow-up contrast CT today. She has blood cultures pending for her cough and leukocytosis. Her current H&H is 11.1 and 32.8 with a white blood count of 11.9. This morning patient feeling much better. She denies any shortness of breath. Her abdomen is soft nondistended. Her incision is dry and intact. She is having normal vaginal bleeding. She states that she is feeling well other than the pain of her incision. She states that she understands it is normal. She has been getting up without any difficulty. She is having minimal swelling. She is planning on dumping her breast milk. We are seeing how long before she can begin breast-feeding and again after the contrast is given. From an obstetric standpoint she is doing wonderfully. Her incision looks great. She will follow-up with the primary weave defect charting clerk on an outpatient basis. She should have a scheduled visit within the next 2 weeks. From an obstetrical standpoint she is doing very well. Her timing of discharge will be per h ospitalist, we will continue to follow along.
[2017-12-02] MEDS: 0.9 % Sodium Chloride 1,000 ML IVC SCH (09:55)
[2017-12-02] MEDS ORDERED: Aminoglycoside Consult 1 EACH MC ONE (11:29)
--- NOTE | 2017-12-02 11:29 | Internal Med Progress Note ---
Hospitalist Progress Note - Encounter Date of Encounter: 12/02/17 Time of Encounter: 08:00 - Subjective Interval History: patient was seen and examined at bedside. reports that her chest pain has nearly resolved. denies palpitations, SOB, N/V/D. has mild incisional pain on ambulation from her recent Csection denies bleeding from C section site. pain is controlled with pain medications. - Exam Vitals: Temp Pulse Resp BP Pulse Ox 98.0 F 110 17 116/80 95 12/02/17 06:51 12/02/17 06:51 12/02/17 06:51 12/02/17 06:51 12/02/17 06:51 Exam: General: Patient is alert, oriented, no acute distress, obese Head: atraumatic, normocephalic, Eye: normal appearance, PERRL, no scleral icterus, no conjunctival injection ENT: mucous membranes moist, normal external ear exam Neck: normal inspection, trachea midline, full ROM, no carotid bruits Chest: normal inspection, symmetric chest rise Respiratory: Good respiratory effort. Bilateral breath sounds are clear without wheezing, occasional crackles. Cardiovascular: Regular rate and rhythm. s1 and s2 No clicks, rubs, gallops, or murmors. Abdomen: Bowel sounds present normoactive x-4 quadrants. Abdomen is soft, nondistended. no Epigastric tenderness. No guarding or rebound. No organomegaly noted, obese musculoskeletal: Spontaneously moving all extremities. +2 edema, no calf tenderness Skin: warm, dry, intact. Neuro: Alert and oriented x4. Sensation light touch intact. Cranial nerves 2- 12 is intact. Not aphasic, gait is steady, rapid hand movements intact, [id number] intact, Psych: Patient's affect is normal - Assessment and Plan (1) Pleuritic chest pain Current Visit: Yes Status: Acute Assessment and Plan: hospitalist was consulte juanpablo night on 12/01 for pleuretic CP there was Strong clinical suspicion for PE. ( still is is tachycardic) CTA chest 12/01 -- suboptimal study. No central PE, but peripheral PE not excluded. as it was suboptimal study she was started on heparin drip spoke with RN asking her to monitor for any increased vaginal bleeding or bleeding from wound. incentive spirometry telemetry and continuous pulse ox Doppler of legs- pending TTE pending Repeat CTA in AM she understands that she will need to "Pump and dump" until cleared by her OBGYN for breast feeding as she is receiving multiple medications/ IV contrast above plan discussed with patietn and at bedside and she understands and agreeable to have repeated CTA chest understanding risk of contrast nephropathy (2) Pleural effusion Current Visit: Yes Status: Acute Assessment and Plan: CTPA with bilateral pleural effusions in addition to +2 edema of LE will give one dose of lasix 20 mg IV push IVF discontinued strict I/O (3) Leukocytosis Current Visit: Yes Status: Acute Assessment and Plan: most likely reactive as she is S/p will discontinue ABx as CTPA shows pleural effusion and no consolidation she is Afebrile follow bcx and watch patietn if she develops fever will consider restarting ABx (4) S/P Current Visit: Yes Status: Acute Assessment and Plan: Will defer to SAFETY FIRE BOSS. pain control as per OBGYN nursing staff aware to have frequent site check for bleeding (5) DVT prophylaxis Current Visit: Yes Status: Acute Assessment and Plan: Heparin drip as above. - Time Spent with Patient Total time spent is greater than 50% in coordination of care (as documented) at patient's floor/unit and/or counseling patient: Internal Medicine: Result - Labs CBC & Chem 7: 12/02/17 06:49 12/02/17 06:49 Labs: Short CBC 12/01/17 12/02/17 Range/Units 23:23 06:49 WBC 21.0 H 19.0 H (4.3-11.1) K/mcL Hgb 9.7 L D 9.2 L (11.5-15.4) g/dL Hct 28.8 L 27.5 L (35.3-44.9) % Plt Count 259 240 (140-400) K/mcL Neutrophils # 16.4 H (1.6-8.9) K/mcL BMP 12/02/17 06:49 Sodium 137 Potassium 3.7 Chloride 108 H Carbon Dioxide 22 L BUN 16 Creatinine 0.84 Glucose 101 Calcium 8.3 L Liver Function 12/02/17 Range/Units 06:49 Total Bilirubin 0.2 L (0.3-1.0) mg/dL AST 22 (13-39) Units/L ALT 10 (7-52) Units/L Alkaline Phosphatase 111 H (34-104) Units/L Albumin 2.7 L (3.5-5.7) g/dL - ABG Interpretation ABG results: PT/INR, D-dimer PT 11.4 Seconds (9.4-12.1) 12/01/17 23:23 - Impressions Impressions Chest CTA 12/01/17 21:27 IMPRESSION: 1. Pulmonary arteries are suboptimally opacified for evaluation with limited assessment of the distal segmental and subsegmental vessel. No evidence of central/proximal intraluminal filling defect to suggest pulmonary embolism. 2. Small bilateral pleural effusions with associated atelectasis. D/ / Monty Senior MD / Monty Senior MD Interpreting Provider: Monty Senior MD - VTE Reasons for not Prescribing Prophylaxis: Treatment not Indicated - Low risk for VTE Documentation of Mechanical Device: Intermittent pneumatic compression device Consult Discharge Plan - Plan Referrals: Jonelle Davies, SITE SUPERVISOR [Primary Care Provider] -
[2017-12-02] MEDS ORDERED: Furosemide 20 MG/2 ML VIAL IVP ONE (11:52)
--- NOTE | 2017-12-02 12:48 | OB/GYN Progress Note ---
Date of Encounter: 12/02/17 Time of Encounter: 12:45 - Assessment and Plan (1) Elective induction of labor planned Current Visit: Yes Status: Acute 27 y/o s/p PC/S for arrest of descent/CAT 2 tracing, POD#2, patient is doing well, she is ambulating and tolerating PO, she is on the heparin drip, she is on zosyn, repeat CT is tomorrow, she is due to have dopplers shortly, discharge per Hospitalist Subjective - Subjective Interval history: patient is doing, she was having lunch at time of visit. Objective - Vital Signs Latest vital signs: Vital Signs Temp Pulse Pulse Resp BP Pulse Ox 12/02/17 11:44 98.0 F 114 17 129/88 96 12/02/17 06:51 98.0 F 110 17 116/80 95 12/02/17 04:32 97.6 F 126 19 125/80 96 12/01/17 22:30 97.9 F 130 17 113/70 95 12/01/17 19:40 98.4 F 122 14 112/78 96 12/01/17 19:03 98.4 F 130 20 114/70 96 12/01/17 17:28 120 19 12/01/17 17:00 98.4 F 134 18 126/83 98 12/01/17 15:00 139 20 109/75 96 12/01/17 13:49 17 Intake and Output 12/01/17 12/02/17 12/02/17 23:59 07:59 15:59 Intake Total 240 / 240 650 / 650 1120 / 1120 Output Total 1000 / 1000 360 / 360 Balance -760 / -760 650 / 650 760 / 760 Intake: IV Fluids 250 / 250 1000 / 1000 0.9 % Sodium Chloride 1,000 ML 1000 / 1000 @ 100 mls/hr IVC .Q10H NADIA Rx#: [id number] Heparin 25,000 UNIT/500 ML D5W 0 / 0 25,000 unit In 500 ml @ 14 UNIT /KG/HR 28.259 mls/hr IVC . [id number] NADIA Rx#:[id number] Vancocin 1,500 MG In 0.9 % 250 / 250 Sodium Chloride 250 ML @ 166. 667 mls/hr IVPB Q12H NADIA Rx#: [id number] Oral 240 / 240 400 / 400 120 / 120 Output: Urine 1000 / 1000 360 / 360 Other: Meal Dinner Breakfast Percent of Meal Consumed 30% 50% # Voids 1 Weight 100.4 kg - Exam Lungs: bilateral: normal Chest: Normal S1, Normal S2 (tachycardic) Extremities: Present: normal Abdomen: Present: soft Incision: Present: dressed (dressing to be removed later today) - Labs Labs: Laboratory Results - last 24 hr 12/01/17 12/01/17 12/02/17 23:23 23:23 06:49 WBC 21.0 H 19.0 H RBC 3.37 L 3.18 L Hgb 9.7 L D 9.2 L Hct 28.8 L 27.5 L MCV 85.5 86.5 MCH 28.8 28.9 MCHC 33.7 33.5 RDW 14.7 H 14.6 H Plt Count 259 240 MPV 11.0 10.6 Immature Gran % 1.2 Seg Neutrophils % 86.3 Lymphocytes % 7.6 Monocytes % 3.5 Eosinophils % 1.1 Basophils % 0.3 Neutrophils # 16.4 H Lymphocytes # 1.4 Monocytes # 0.7 Eosinophils # 0.2 Basophils # 0.1 PT 11.4 INR 1.0 Heparin Anti-Xa, Unfract 0.00 L Sodium Potassium Chloride Carbon Dioxide BUN Creatinine Est GFR ( Amer) Est GFR (Non-Af Amer) BUN/Creatinine Ratio Glucose Calculated Osmolality Calcium Total Bilirubin AST ALT Alkaline Phosphatase Serum Total Protein Albumin Globulin Albumin/Globulin Ratio 12/02/17 12/02/17 06:49 06:49 WBC RBC Hgb Hct MCV MCH MCHC RDW Plt Count MPV Immature Gran % Seg Neutrophils % Lymphocytes % Monocytes % Eosinophils % Basophils % Neutrophils # Lymphocytes # Monocytes # Eosinophils # Basophils # PT INR Heparin Anti-Xa, Unfract 0.35 Sodium 137 Potassium 3.7 Chloride 108 H Carbon Dioxide 22 L BUN 16 Creatinine 0.84 Est GFR ( Amer) > 60 Est GFR (Non-Af Amer) > 60 BUN/Creatinine Ratio 19 Glucose 101 Calculated Osmolality 285 Calcium 8.3 L Total Bilirubin 0.2 L AST 22 ALT 10 Alkaline Phosphatase 111 H Serum Total Protein 5.4 L Albumin 2.7 L Globulin 2.7 Albumin/Globulin Ratio 1.0 L
[2017-12-03] MEDS: *HR* OxyCODONE/APAP 5/325 TABLET PO PRN ×3 (03:29→18:08)
[2017-12-03 05:09] LABS: Hematocrit 29.1 % (35.3-44.9); Hemoglobin 9.3 g/dL (11.5-15.4); Mean Corpuscular Hemoglobin 28.4 pg (28.0-33.3); Mean Corpuscular Volume 88.7 fL (83.0-100.0); Mean Platelet Volume 10.8 fL (9.4-12.4); Platelet Count 253 K/mcL (140-400); Red Blood Count 3.28 M/mcL (3.82-4.97); Red Cell Distribution Width 14.6 % (11.5-14.5)
[2017-12-03 05:31] LABS: BUN/Creatinine Ratio 16 (6-26); Blood Urea Nitrogen 14 mg/dL (6-20); Calcium 7.9 mg/dL (8.6-10.3); Carbon Dioxide 24 mEq/L (23-29); Chloride 106 mEq/L (98-107); Glucose 77 mg/dL (70-105); Osmolality,Calculated 285 (280-300); Potassium 3.4 mEq/L (3.5-5.1); Sodium 138 mEq/L (136-145); eGFR For Non-African Americans > 60 (> 60)
[2017-12-03] MEDS ORDERED: Isovue-370 500 ML INFUS..BTL IV ONE (06:00)
[2017-12-03] MEDS: Acetaminophen 325 MG TABLET PO PRN ×2 (06:37→13:41)
[2017-12-03] MEDS: Prenatal Vit/FA 1 EACH TABLET PO SCH (08:50)
[2017-12-03] MEDS: Heparin 25,000 UNIT/500 ML D5W 25,000 UNIT/500 ML BAG IVC SCH (12:46)
--- NOTE | 2017-12-03 14:50 | Internal Med Progress Note ---
Hospitalist Progress Note - Encounter Date of Encounter: 12/03/17 Time of Encounter: 14:41 - Subjective Interval History: Pt states she is feeling much better. She denies CP or SOB. She is afebrile. She denies abdominal pain, N/V or diarrhea. She is requesting to see her baby. - Exam Vitals: Temp Pulse Resp BP Pulse Ox 97.9 F 116 16 125/78 99 12/03/17 12:00 12/03/17 12:00 12/03/17 12:00 12/03/17 12:00 12/03/17 13:18 Exam: General: Patient is alert, oriented, no acute distress, obese Head: atraumatic, normocephalic, Eye: normal appearance, PERRL, no scleral icterus, no conjunctival injection ENT: mucous membranes moist, normal external ear exam Neck: normal inspection, trachea midline, full ROM, no carotid bruits Chest: normal inspection, symmetric chest rise Respiratory: Good respiratory effort. Bilateral breath sounds are clear without wheezing, occasional crackles. Cardiovascular: Regular rate and rhythm. s1 and s2 No clicks, rubs, gallops, or murmors. Abdomen: Bowel sounds present normoactive x-4 quadrants. Abdomen is soft, nondistended. no Epigastric tenderness. No guarding or rebound. No organomegaly noted, obese musculoskeletal: Spontaneously moving all extremities. +2 edema, no calf tenderness Skin: warm, dry, intact. Neuro: Alert and oriented x4. Sensation light touch intact. Cranial nerves 2- 12 is intact. Not aphasic, gait is steady, rapid hand movements intact, [id number] intact, Psych: Patient's affect is normal - Assessment and Plan (1) Pleural effusion Current Visit: Yes Status: Acute Assessment and Plan: CTPA with bilateral pleural effusions in addition to +2 edema of LE Given one time lasix 20 mg IV push 12/02/2017. Will give one more dose of Lasix 20 mg PO today. IVF discontinued. Strict I/O Recommend out pt follow up with cardiology at discharge (2) Pleuritic chest pain Current Visit: Yes Status: Acute Assessment and Plan: Resolved. She denies CP or SOB. Respiratory panel sent. Pt had 6 minute walk oxygen saturation was 99% on room air. HR was up but resolved at rest. Hospitalist was consulted over night on 12/01 for pleuretic CP there was Strong clinical suspicion for PE due to tachycardia CTA chest 12/01 -- suboptimal study. No central PE, but peripheral PE not excl uded. as it was suboptimal study she was started on heparin drip Given incentive spirometry. telemetry and continuous pulse ox monitored. Doppler of legs- negative TTE shoved LVEF 60% and was normal. Repeat CTA 12/02/2017 negative for PE so heparin discontinued. she understands that she will need to "Pump and dump" until cleared by her OBGYN for breast feeding as she is receiving multiple medications/ IV contrast above plan discussed with patient she agrees Tachycardia possibly medication induced. Explained to pt that would e best to give her body time to clear meds and at that point follow up out pt with PCP to reassess, to see if she is still tachycardic. If she is still tachycardic, she may benefit from out pt follow up with cardiology. Thank you for allowing us to participate in your care. Will follow as needed. (3) Tachycardia Current Visit: Yes Status: Acute Assessment and Plan: Probably medication and or stress induced. Given one time IV Lasix 20 mg for pleural effusion. Will give one time Lasix 20 mg PO. Explained to pt that its best to re evaluate once her body clears out medication from being admitted. Recommend out pt follow up with cardiology at discharge. (4) Leukocytosis Current Visit: Yes Status: Acute Assessment and Plan: Most likely reactive as she is S/p . CTPA showed pleural effusion and no consolidation. She was given antibiotic which was discontinued. Antibiotic was discontinue as she is afebrile, and leukocytosis which has trended down was likely reactive to surgical C section. Pt denies cough or sputum. She denies CP or SOB. Blood culture pending. Checking respiratory panel if neg then ok to go back to OB. If she develops fever will consider restarting ABx but so far she has been afebrile. (5) S/P Current Visit: Yes Status: Acute Assessment and Plan: Will defer to ICE SCRAPER. pain control as per OBGYN nursing staff aware to have frequent site check for bleeding Since pt was on heparin, recommend continue to monitor C -section site closely for bleeding. DVT Prophylaxis: Heparin drip discontinued - Summary of Assessment and Plan Summary of Assessment and Plan: Ms. Bolden is a 27 year old female who was roughly 24 hours from C- section delivery of her first child yesterday. She was noted to be tachycardic today and complaining of some pleuritic type chest pain. Hospitalist consult was requested by OB. I saw patient in consultation this evening and she states that she has been having pleuritic-type chest pain with deep inspiration for roughly 24-48 hours. She did not notice her heart rate being fast. She denies any palpitations. She complains of dyspnea with her pleuritic chest pain. She states she had a fever yesterday, but I do not see any documentation of fevers. She has had some slight cough. She denies any productive sputum. She denies any vomiting, diarrhea, or nausea. was uncomplicated. She was not on any prolonged bed rest. She worked up until her due date. She denies any prolonged travel or personal or family history of clots. I reviewed her labs and note that significant jump in leukocytosis. I spoke with her OB, and he does not feel she has endometritis. Given her history, I am concerned about both pulmonary embolus and/or pneumonia. I requested transfer to a telemetry unit and a STAT CTA of the chest to rule out PE. I advised patient that she will likely have to "pump and dump" her breast milk due to the contrast and radiation exposure. If necessary, Dr. Moreno stated we can anticoagulate in the setting of PE. - Time Spent with Patient Total time spent is greater than 50% in coordination of care (as documented) at patient's floor/unit and/or counseling patient: less than 15 minutes Plan of Care Discussed with: patient Internal Medicine: Result - Labs CBC & Chem 7: 12/03/17 04:22 12/03/17 04:22 Labs: Short CBC 12/03/17 Range/Units 04:22 WBC 12.0 H (4.3-11.1) K/mcL Hgb 9.3 L (11.5-15.4) g/dL Hct 29.1 L (35.3-44.9) % Plt Count 253 (140-400) K/mcL BMP 12/03/17 04:22 Sodium 138 Potassium 3.4 L Chloride 106 Carbon Dioxide 24 BUN 14 Creatinine 0.85 Glucose 77 Calcium 7.9 L - ABG Interpretation ABG results: PT/INR, D-dimer PT 11.4 Seconds (9.4-12.1) 12/01/17 23:23 - Impressions Impressions Echocardiogram 12/03/17 07:00 Impressions: LVEF 60%. Normal LV chamber size, wall thickness and function. Mild left ventricular diastolic dysfunction. Normal right ventricular structure and function. No evidence of pulmonary hypertension. Chest CTA 12/03/17 08:00 IMPRESSION: 1. No pulmonary embolism. 2. Stable pleural effusions and scattered airspace opacities in the lower lobes bilaterally. Pattern may represent pulmonary edema or aspiration pneumonitis. A viral infection may also be considered clinically. D/ / Sidney Gilmore MD / Sidney Gilmore MD Interpreting Provider: Sidney Gilmore MD - VTE Reasons for not Prescribing Prophylaxis: Treatment not Indicated - Low risk for VTE Documentation of Mechanical Device: Intermittent pneumatic compression device Consult Discharge Plan - Plan Referrals: Jonelle Davies, GRAIN UNLOADER MACHINE [Primary Care Provider] -
[2017-12-03] MEDS ORDERED: Furosemide 20 MG TABLET PO ONE (15:07)
[2017-12-03 16:55] LABS: Adenovirus Not Detected (Not Detect); Bordetella Pertussis Not Detected (Not Detect); Chlamydophila pneumoniae Not Detected (Not Detect); Coronavirus 229E Not Detected (Not Detect); Coronavirus HKU1 Not Detected (Not Detect); Coronavirus NL63 Not Detected (Not Detect); Coronavirus OC43 Not Detected (Not Detect); Human Metapneumovirus Not Detected (Not Detect); Human Rhinovirus/Enterovirus Not Detected (Not Detect); Influenza A Subtype 2009 H1 Not Detected (Not Detect); Influenza A Untypeable Not Detected (Not Detect); Influenza B Not Detected (Not Detect); Mycoplasma pneumoniae Not Detected (Not Detect); Parainfluenza Virus 1 Not Detected (Not Detect); Parainfluenza Virus 2 Not Detected (Not Detect); Parainfluenza Virus 3 Not Detected (Not Detect); Parainfluenza Virus 4 Not Detected (Not Detect); Respiratory Syncytial Virus Not Detected (Not Detect)
[2017-12-03] MEDS: Ibuprofen 600 MG TABLET PO PRN (21:27)
[2017-12-04] MEDS: Ibuprofen 600 MG TABLET PO PRN (02:59)
[2017-12-04] MEDS: *HR* OxyCODONE/APAP 5/325 TABLET PO PRN (02:59)
[2017-12-04 06:39] LABS: Basophils % 0.5 %; Eosinophils # 0.3 K/mcL (0.0-0.6); Eosinophils % 3.3 %; Hematocrit 26.3 % (35.3-44.9); Hemoglobin 8.6 g/dL (11.5-15.4); Immature Granulocytes % 2.1 % (0-4); Lymphocytes # 1.7 K/mcL (0.6-4.6); Lymphocytes % 21.7 %; Mean Corpuscular HGB Conc 32.7 g/dL (31.6-35.5); Mean Corpuscular Hemoglobin 28.5 pg (28.0-33.3); Mean Corpuscular Volume 87.1 fL (83.0-100.0); Mean Platelet Volume 10.4 fL (9.4-12.4); Monocytes # 0.6 K/mcL (0.0-1.3); Monocytes % 7.6 %; Platelet Count 277 K/mcL (140-400); Red Blood Count 3.02 M/mcL (3.82-4.97); Red Cell Distribution Width 14.6 % (11.5-14.5); Segmented Neutrophils % 64.8 %
[2017-12-04 07:30] VITALS: BP 132/87
[2017-12-04] MEDS: Prenatal Vit/FA 1 EACH TABLET PO SCH (07:38)
--- NOTE | 2017-12-04 08:53 | Discharge Summary ---
Date of Encounter: 12/04/17 Time of Encounter: 08:53 - Discharge Diagnosis (1) anemia Priority: Secondary Status: Acute Comments: Hgb 8.6 this AM. Patient asymptomatic at this time Discharge home with Iron prescription bid. (2) Status post primary low transverse section Priority: Primary Status: Acute Comments: Meeting milestones for day 4. No complaint of SOB, tachycardia or tachypnea at this time. To follow up with primary OB in 2 weeks. Steri strips intact, no incisional drainage. (3) Breast feeding status of mother Priority: Secondary Status: Acute Comments: consult prn. Patient currently "pumping and dumping" due to CT contrast. Patient reports she has a breast pump at home. - Discharge Medications Prescriptions: Ibuprofen [Motrin] 600 mg PO Q6HR PRN #60 tablet PRN Reason: Pain OxyCODONE/APAP 5/325 [Percocet 5/325 MG] 1 each PO Q6HR PRN 7 Days #28 tablet PRN Reason: Moderate pain 4-6 Docusate [Colace] 100 mg PO BID #60 capsule Ferrous Sulfate 325 mg PO BIDWM #60 tablet Home Medications: Vits #90/Iron Fum/FA [ Formula Tablet] 1 tab PO DAILY 11/29/17 [History] Acetaminophen [Tylenol] 650 mg PO Q6HR PRN tablet 12/04/17 [Rx] Docusate [Colace] 100 mg PO BID #60 capsule 12/04/17 [Rx] Ferrous Sulfate 325 mg PO BIDWM #60 tablet 12/04/17 [Rx] Ibuprofen [Motrin] 600 mg PO Q6HR PRN #60 tablet 12/04/17 [Rx] OxyCODONE/APAP 5/325 [Percocet 5/325 MG] 1 each PO Q6HR PRN 7 Days #28 tablet 12/04/17 [Rx] Simethicone [Gas-X] 80 mg PO TID PRN tab.chew 12/04/17 [Rx] Allergies/Adverse Reactions: Allergy/AdvReac Type Severity Reaction Status Date / Time No Known Allergies Allergy Verified 12/02/17 09:07 Data Procedures and tests throughout hospitalization: Laboratory Tests 11/29/17 11/29/17 11/29/17 05:50 05:50 05:50 WBC 11.9 H RBC 3.79 L Hgb 11.1 L Hct 32.8 L MCV 86.5 MCH 29.3 MCHC 33.8 RDW 14.1 Plt Count 256 MPV 11.1 Immature Gran % 0.7 Seg Neutrophils % 75.1 Lymphocytes % 15.6 Monocytes % 7.1 Eosinophils % 1.2 Basophils % 0.3 Neutrophils # 9.0 H Lymphocytes # 1.9 Monocytes # 0.9 Eosinophils # 0.1 Basophils # 0.0 Immature Plt Fraction 8.7 H PT INR Heparin Anti-Xa, Unfract Sodium Potassium Chloride Carbon Dioxide BUN Creatinine Est GFR ( Amer) Est GFR (Non-Af Amer) BUN/Creatinine Ratio Glucose Calculated Osmolality Calcium Total Bilirubin AST ALT Alkaline Phosphatase B-Natriuretic Peptide Serum Total Protein Albumin Globulin Albumin/Globulin Ratio Urine Opiates Screen Negative Ur Barbiturates Screen Negative Ur Phencyclidine Scrn Negative Ur Amphetamines Screen Negative U Benzodiazepines Scrn Negative Urine Cocaine Screen Negative U Marijuana (THC) Screen Negative Ur Drug Screen Interp See Below Chlamy pneumoniae PCR Adenovirus (PCR) B. pertussis DNA (PCR) B.parapertussis DNA PCR Coronavirus OC43 (PCR) Coronavirus HKU1 (PCR) Coronavirus 229E (PCR) Coronavirus NL63 (PCR) Human Metapneumovir PCR Influenza A (H1) PCR Influ A (H1N1/09) PCR Influenza A (H3) PCR Influenza A Untype (PCR) Influenza Type B (PCR) M.pneumoniae DNA (PCR) Parainfluenza 1 (PCR) Parainfluenza 2 (PCR) Parainfluenza 3 (PCR) Parainfluenza 4 (PCR) RSV (PCR) Entero/Rhino (PCR) Blood Type A POSITIVE Antibody Screen NEGATIVE 12/01/17 12/01/17 12/01/17 02:43 08:03 23:23 WBC 23.3 H D 23.7 H 21.0 H RBC 3.81 L 3.98 3.37 L Hgb 10.9 L 11.4 L 9.7 L D Hct 32.2 L 34.2 L 28.8 L MCV 84.5 85.9 85.5 MCH 28.6 28.6 28.8 MCHC 33.9 33.3 33.7 RDW 14.4 14.4 14.7 H Plt Count 238 262 259 MPV 11.2 11.4 11.0 Immature Gran % 0.5 0.8 Seg Neutrophils % 89.9 88.5 Lymphocytes % 5.5 6.2 Monocytes % 3.6 3.8 Eosinophils % 0.2 0.4 Basophils % 0.3 0.3 Neutrophils # 21.0 H 21.0 H Lymphocytes # 1.3 1.5 Monocytes # 0.8 0.9 Eosinophils # 0.1 0.1 Basophils # 0.1 0.1 Immature Plt Fraction PT INR Heparin Anti-Xa, Unfract Sodium Potassium Chloride Carbon Dioxide BUN Creatinine Est GFR ( Amer) Est GFR (Non-Af Amer) BUN/Creatinine Ratio Glucose Calculated Osmolality Calcium Total Bilirubin AST ALT Alkaline Phosphatase B-Natriuretic Peptide Serum Total Protein Albumin Globulin Albumin/Globulin Ratio Urine Opiates Screen Ur Barbiturates Screen Ur Phencyclidine Scrn Ur Amphetamines Screen U Benzodiazepines Scrn Urine Cocaine Screen U Marijuana (THC) Screen Ur Drug Screen Interp Chlamy pneumoniae PCR Adenovirus (PCR) B. pertussis DNA (PCR) B.parapertussis DNA PCR Coronavirus OC43 (PCR) Coronavirus HKU1 (PCR) Coronavirus 229E (PCR) Coronavirus NL63 (PCR) Human Metapneumovir PCR Influenza A (H1) PCR Influ A (H1N1/09) PCR Influenza A (H3) PCR Influenza A Untype (PCR) Influenza Type B (PCR) M.pneumoniae DNA (PCR) Parainfluenza 1 (PCR) Parainfluenza 2 (PCR) Parainfluenza 3 (PCR) Parainfluenza 4 (PCR) RSV (PCR) Entero/Rhino (PCR) Blood Type Antibody Screen 12/01/17 12/02/17 12/02/17 23:23 06:49 06:49 WBC 19.0 H RBC 3.18 L Hgb 9.2 L Hct 27.5 L MCV 86.5 MCH 28.9 MCHC 33.5 RDW 14.6 H Plt Count 240 MPV 10.6 Immature Gran % 1.2 Seg Neutrophils % 86.3 Lymphocytes % 7.6 Monocytes % 3.5 Eosinophils % 1.1 Basophils % 0.3 Neutrophils # 16.4 H Lymphocytes # 1.4 Monocytes # 0.7 Eosinophils # 0.2 Basophils # 0.1 Immature Plt Fraction PT 11.4 INR 1.0 Heparin Anti-Xa, Unfract 0.00 L Sodium 137 Potassium 3.7 Chloride 108 H Carbon Dioxide 22 L BUN 16 Creatinine 0.84 Est GFR ( Amer) > 60 Est GFR (Non-Af Amer) > 60 BUN/Creatinine Ratio 19 Glucose 101 Calculated Osmolality 285 Calcium 8.3 L Total Bilirubin 0.2 L AST 22 ALT 10 Alkaline Phosphatase 111 H B-Natriuretic Peptide Serum Total Protein 5.4 L Albumin 2.7 L Globulin 2.7 Albumin/Globulin Ratio 1.0 L Urine Opiates Screen Ur Barbiturates Screen Ur Phencyclidine Scrn Ur Amphetamines Screen U Benzodiazepines Scrn Urine Cocaine Screen U Marijuana (THC) Screen Ur Drug Screen Interp Chlamy pneumoniae PCR Adenovirus (PCR) B. pertussis DNA (PCR) B.parapertussis DNA PCR Coronavirus OC43 (PCR) Coronavirus HKU1 (PCR) Coronavirus 229E (PCR) Coronavirus NL63 (PCR) Human Metapneumovir PCR Influenza A (H1) PCR Influ A (H1N1/09) PCR Influenza A (H3) PCR Influenza A Untype (PCR) Influenza Type B (PCR) M.pneumoniae DNA (PCR) Parainfluenza 1 (PCR) Parainfluenza 2 (PCR) Parainfluenza 3 (PCR) Parainfluenza 4 (PCR) RSV (PCR) Entero/Rhino (PCR) Blood Type Antibody Screen 12/02/17 12/02/17 12/03/17 06:49 13:11 04:22 WBC RBC Hgb Hct MCV MCH MCHC RDW Plt Count MPV Immature Gran % Seg Neutrophils % Lymphocytes % Monocytes % Eosinophils % Basophils % Neutrophils # Lymphocytes # Monocytes # Eosinophils # Basophils # Immature Plt Fraction PT INR Heparin Anti-Xa, Unfract 0.35 0.41 Sodium Potassium Chloride Carbon Dioxide BUN Creatinine Est GFR ( Amer) Est GFR (Non-Af Amer) BUN/Creatinine Ratio Glucose Calculated Osmolality Calcium Total Bilirubin AST ALT Alkaline Phosphatase B-Natriuretic Peptide 228 H Serum Total Protein Albumin Globulin Albumin/Globulin Ratio Urine Opiates Screen Ur Barbiturates Screen Ur Phencyclidine Scrn Ur Amphetamines Screen U Benzodiazepines Scrn Urine Cocaine Screen U Marijuana (THC) Screen Ur Drug Screen Interp Chlamy pneumoniae PCR Adenovirus (PCR) B. pertussis DNA (PCR) B.parapertussis DNA PCR Coronavirus OC43 (PCR) Coronavirus HKU1 (PCR) Coronavirus 229E (PCR) Coronavirus NL63 (PCR) Human Metapneumovir PCR Influenza A (H1) PCR Influ A (H1N1/09) PCR Influenza A (H3) PCR Influenza A Untype (PCR) Influenza Type B (PCR) M.pneumoniae DNA (PCR) Parainfluenza 1 (PCR) Parainfluenza 2 (PCR) Parainfluenza 3 (PCR) Parainfluenza 4 (PCR) RSV (PCR) Entero/Rhino (PCR) Blood Type Antibody Screen 12/03/17 12/03/17 12/03/17 04:22 04:22 13:11 WBC 12.0 H RBC 3.28 L Hgb 9.3 L Hct 29.1 L MCV 88.7 MCH 28.4 MCHC 32.0 RDW 14.6 H Plt Count 253 MPV 10.8 Immature Gran % Seg Neutrophils % Lymphocytes % Monocytes % Eosinophils % Basophils % Neutrophils # Lymphocytes # Monocytes # Eosinophils # Basophils # Immature Plt Fraction PT INR Heparin Anti-Xa, Unfract 0.25 L Sodium 138 Potassium 3.4 L Chloride 106 Carbon Dioxide 24 BUN 14 Creatinine 0.85 Est GFR ( Amer) > 60 Est GFR (Non-Af Amer) > 60 BUN/Creatinine Ratio 16 Glucose 77 Calculated Osmolality 285 Calcium 7.9 L Total Bilirubin AST ALT Alkaline Phosphatase B-Natriuretic Peptide Serum Total Protein Albumin Globulin Albumin/Globulin Ratio Urine Opiates Screen Ur Barbiturates Screen Ur Phencyclidine Scrn Ur Amphetamines Screen U Benzodiazepines Scrn Urine Cocaine Screen U Marijuana (THC) Screen Ur Drug Screen Interp Chlamy pneumoniae PCR Adenovirus (PCR) B. pertussis DNA (PCR) B.parapertussis DNA PCR Coronavirus OC43 (PCR) Coronavirus HKU1 (PCR) Coronavirus 229E (PCR) Coronavirus NL63 (PCR) Human Metapneumovir PCR Influenza A (H1) PCR Influ A (H1N1/09) PCR Influenza A (H3) PCR Influenza A Untype (PCR) Influenza Type B (PCR) M.pneumoniae DNA (PCR) Parainfluenza 1 (PCR) Parainfluenza 2 (PCR) Parainfluenza 3 (PCR) Parainfluenza 4 (PCR) RSV (PCR) Entero/Rhino (PCR) Blood Type Antibody Screen 12/03/17 12/04/17 13:44 06:23 WBC 7.7 RBC 3.02 L Hgb 8.6 L Hct 26.3 L MCV 87.1 MCH 28.5 MCHC 32.7 RDW 14.6 H Plt Count 277 MPV 10.4 Immature Gran % 2.1 Seg Neutrophils % 64.8 Lymphocytes % 21.7 Monocytes % 7.6 Eosinophils % 3.3 Basophils % 0.5 Neutrophils # 5.0 Lymphocytes # 1.7 Monocytes # 0.6 Eosinophils # 0.3 Basophils # 0.0 Immature Plt Fraction PT INR Heparin Anti-Xa, Unfract Sodium Potassium Chloride Carbon Dioxide BUN Creatinine Est GFR ( Amer) Est GFR (Non-Af Amer) BUN/Creatinine Ratio Glucose Calculated Osmolality Calcium Total Bilirubin AST ALT Alkaline Phosphatase B-Natriuretic Peptide Serum Total Protein Albumin Globulin Albumin/Globulin Ratio Urine Opiates Screen Ur Barbiturates Screen Ur Phencyclidine Scrn Ur Amphetamines Screen U Benzodiazepines Scrn Urine Cocaine Screen U Marijuana (THC) Screen Ur Drug Screen Interp Chlamy pneumoniae PCR Not Detected Adenovirus (PCR) Not Detected B. pertussis DNA (PCR) Not Detected B.parapertussis DNA PCR Not Detected Coronavirus OC43 (PCR) Not Detected Coronavirus HKU1 (PCR) Not Detected Coronavirus 229E (PCR) Not Detected Coronavirus NL63 (PCR) Not Detected Human Metapneumovir PCR Not Detected Influenza A (H1) PCR Not Detected Influ A (H1N1/09) PCR Not Detected Influenza A (H3) PCR Not Detected Influenza A Untype (PCR) Not Detected Influenza Type B (PCR) Not Detected M.pneumoniae DNA (PCR) Not Detected Parainfluenza 1 (PCR) Not Detected Parainfluenza 2 (PCR) Not Detected Parainfluenza 3 (PCR) Not Detected Parainfluenza 4 (PCR) Not Detected RSV (PCR) Not Detected Entero/Rhino (PCR) Not Detected Blood Type Antibody Screen Labs on day of discharge: Labs from last 24 hours 12/04/17 12/03/17 12/03/17 06:23 13:44 13:11 WBC 7.7 RBC 3.02 L Hgb 8.6 L Hct 26.3 L MCV 87.1 MCH 28.5 MCHC 32.7 RDW 14.6 H Plt Count 277 MPV 10.4 Immature Gran % 2.1 Seg Neutrophils % 64.8 Lymphocytes % 21.7 Monocytes % 7.6 Eosinophils % 3.3 Basophils % 0.5 Neutrophils # 5.0 Lymphocytes # 1.7 Monocytes # 0.6 Eosinophils # 0.3 Basophils # 0.0 Heparin Anti-Xa, Unfract 0.25 L Chlamy pneumoniae PCR Not Detected Adenovirus (PCR) Not Detected B. pertussis DNA (PCR) Not Detected B.parapertussis DNA PCR Not Detected Coronavirus OC43 (PCR) Not Detected Coronavirus HKU1 (PCR) Not Detected Coronavirus 229E (PCR) Not Detected Coronavirus NL63 (PCR) Not Detected Human Metapneumovir PCR Not Detected Influenza A (H1) PCR Not Detected Influ A (H1N1/09) PCR Not Detected Influenza A (H3) PCR Not Detected Influenza A Untype (PCR) Not Detected Influenza Type B (PCR) Not Detected M.pneumoniae DNA (PCR) Not Detected Parainfluenza 1 (PCR) Not Detected Parainfluenza 2 (PCR) Not Detected Parainfluenza 3 (PCR) Not Detected Parainfluenza 4 (PCR) Not Detected RSV (PCR) Not Detected Entero/Rhino (PCR) Not Detected Preliminary micro results at discharge 12/01/17 21:52 Blood Culture - Preliminary Peripheral Venipuncture Culture is incubating and being continuously monitored for growth. Final report to follow. 12/01/17 21:57 Blood Culture - Preliminary Peripheral Venipuncture Culture is incubating and being continuously monitored for growth. Final report to follow. - Impressions ITS Impressions Chest CTA 12/01/17 21:27 IMPRESSION: 1. Pulmonary arteries are suboptimally opacified for evaluation with limited assessment of the distal segmental and subsegmental vessel. No evidence of central/proximal intraluminal filling defect to suggest pulmonary embolism. 2. Small bilateral pleural effusions with associated atelectasis. D/ / Monty Senior MD / Monty Senior MD Interpreting Provider: Monty Senior MD Echocardiogram 12/03/17 07:00 Impressions: LVEF 60%. Normal LV chamber size, wall thickness and function. Mild left ventricular diastolic dysfunction. Normal right ventricular structure and function. No evidence of pulmonary hypertension. Chest CTA 12/03/17 08:00 IMPRESSION: 1. No pulmonary embolism. 2. Stable pleural effusions and scattered airspace opacities in the lower lobes bilaterally. Pattern may represent pulmonary edema or aspiration pneumonitis. A viral infection may also be considered clinically. D/ / Sidney Gilmore MD / Sidney Gilmore MD Interpreting Provider: Sidney Gilmore MD Date of admission: 11/29/17 04:15 Primary care physician: Jonelle Davies CNP Consults: 12/01/17 17:57 Consult to Hospitalist [CONS] Stat Consulting Provider: Hospitalist Isha Reason for Consult: tachycardia and tachypnea following section Call Completed: Yes Discharging clinician: Karina Pabon Anticipated date of discharge: 12/04/17 - Patient Status Disposition: Home, Self-Care Condition: Good Functional capacity at discharge: independent ambulation Overall status at discharge: patient is progressing back to baseline - Discharge Instructions Follow Up With: Jonelle Davies CNP [Primary Care Provider] - Deirdre Bolden MD [Partnered Physician] - (the office will call you with an apppointment, if they do not call you by next call them ) Leia Sanches MD [Partnered Physician] - - Diet and Activity Activity: resume usual activities as tolerated Diet: regular diet Hospital Course Reason for admission: induction of labor Delivery: section Episiotomy: none Laceration: none Other procedures: other complications: other (See hospitalist note) Discharge diagnosis: IUP at term delivered baby: female Hospital course: Pt was admitted for induction of labor. After several hours of pushing, patient was taken for a section per Dr. Sanches. - Date of procedure: 11/30/17 Preop diagnosis: arrest of descent Post-op diagnosis: same Procedure: primary low transverse Surgeon: Leia Sanches Was there an tourist information assistant present: Yes Spirits Model: Vicki Dennis Anesthesia Type: Epidural section complications: none Disposition: L&D Recovery Room Specimens: Placenta, Cord segment course included tachycardia and tachypnea so hospitalist consult was ordered. Consult Narrative Reason for consult: tachycardia History of present illness: Ms. Bolden is a 27 year old female who was roughly 24 hours from C- section delivery of her first child yesterday. She was noted to be tachycardic today and complaining of some pleuritic type chest pain. Hospitalist consult was requested by OB. I saw patient in consultation this evening and she states that she has been having pleuritic-type chest pain with deep inspiration for roughly 24-48 hours. She did not notice her heart rate being fast. She denies any palpitations. She complains of dyspnea with her pleuritic chest pain. She states she had a fever yesterday, but I do not see any documentation of fevers. She has had some slight cough. She denies any productive sputum. She denies any vomiting, diarrhea, or nausea. was uncomplicated. She was not on any prolonged bed rest. She worked up until her due date. She denies any prolonged travel or personal or family history of clots. I reviewed her labs and note that significant jump in leukocytosis. I spoke with her OB, and he does not feel she has endometritis. Given her history, I am concerned about both pulmonary embolus and/or pneumonia. I requested transfer to a telemetry unit and a STAT CTA of the chest to rule out PE. I advised patient that she will likely have to "pump and dump" her breast milk due to the contrast and radiation exposure. If necessary, Dr. Moreno stated we can anticoagulate in the setting of PE. Today, patient reports that she is feeling much better. She is up and about in room. Reports her pain is well-controlled with scheduled medications. Denies dizziness, SOB, and chest pain. Vital signs WNL today. Anticipate discharge home today. Time Attestation: Total time spent providing and/or coordinating discharge services: Time Spent: Less than 30 minutes - VTE Reasons for not Prescribing Prophylaxis: Treatment not Indicated - Low risk for VTE Documentation of Mechanical Device: Intermittent pneumatic compression device Exam - Constitutional Vitals: Temp Pulse Resp BP Pulse Ox 98.0 F 80 16 132/87 98 12/04/17 07:29 12/04/17 07:29 12/04/17 07:29 12/04/17 07:29 12/04/17 03:05 General appearance IM: A&O X 3, pleasant, no acute distress, answers questions appropriately - Respiratory Respiratory exam: Present: CTAB - Cardiovascular Cardiovascular exam IM: Present: RRR, +S1, +S2 - GI/Abdominal GI/Abdominal exam IM: normal bowel sounds, soft, tenderness Incision: normal, intact (Steri strips) - Rectal Rectal exam: deferred - Uterine Tone: Firm Uterus Position: 2 Fingers Below Umbilicus - Extremities Exam Extremities exam IM: Present: full ROM, normal capillary refill, pedal edema, warm - Neurological Exam Neurological exam: alert, normal gait, oriented X3
== END 2017-12-04 11:30 | disposition home or self-care (01) | DRG 787 ==
LOC: 1NENULAB 04:15 → 1NENUOBS 11-30 18:00 → 2NENU 12-01 22:14 → 1NENUOBS 12-03 20:50
PROVIDERS: ADMIT Student in an Organized Health Care Education/Training Program; ATTEND Student in an Organized Health Care Education/Training Program

== ENCOUNTER 2020-04-05 05:45 | Inpatient (IN) ==
[2020-04-05] MEDS ORDERED: CeFAZolin 2,000 MG/50 ML BAG IVPB ONE (05:47)
[2020-04-05] MEDS ORDERED: Famotidine 20 MG/2 ML VIAL IVP ONE (05:47)
[2020-04-05] MEDS ORDERED: Ringers Solution, Lactated 1,000 ML IVC ONE (05:47)
[2020-04-05] MEDS ORDERED: Metoclopramide 10 MG/2 ML VIAL IVP ONE (05:47)
[2020-04-05 06:23] LABS: Basophils % 0.4 %; Eosinophils # 0.2 K/mcL (0.0-0.6); Eosinophils % 1.5 %; Hematocrit 32.4 % (35.3-44.9); Hemoglobin 10.6 g/dL (11.5-15.4); Immature Granulocytes % 0.6 % (0-4); Lymphocytes % 18.4 %; Mean Corpuscular HGB Conc 32.7 g/dL (31.6-35.5); Mean Corpuscular Volume 88.5 fL (83.0-100.0); Mean Platelet Volume 10.8 fL (9.4-12.4); Monocytes % 8.7 %; Neutrophils # 7.7 K/mcL (1.6-8.9); Platelet Count 267 K/mcL (140-400); Red Blood Count 3.66 M/mcL (3.82-4.97); Red Cell Distribution Width 13.2 % (11.5-14.5); Segmented Neutrophils % 70.4 %; White Blood Count 10.9 K/mcL (4.3-11.1)
[2020-04-05] MEDS ORDERED: Ondansetron 4 MG/2 ML VIAL IVP PRN ×2 (06:44→11:04)
[2020-04-05] MEDS ORDERED: *HR* HYDROmorphone PF 0.5 MG/0.5 ML SYRINGE IVP PRN (06:44)
[2020-04-05] MEDS ORDERED: *HR* Phenylephrine 10 MG/ML VIAL ONE (07:12)
[2020-04-05] MEDS ORDERED: *HR* Oxytocin 10 UNIT/ML VIAL IM ONE (07:15)
[2020-04-05] MEDS ORDERED: Ondansetron 4 MG/2 ML VIAL ONE (07:15)
[2020-04-05] MEDS ORDERED: Ringers Solution, Lactated 1,000 ML ONE ×2 (07:15→07:22)
[2020-04-05] MEDS ORDERED: Ketorolac 30 MG/ML VIAL ONE (07:15)
[2020-04-05] MEDS ORDERED: *HR* Midazolam HCl 2 MG/2 ML VIAL ONE (07:16)
[2020-04-05] MEDS ORDERED: *HR* FentaNYL (PF) 100 MCG/2 ML VIAL ONE (07:16)
[2020-04-05] MEDS ORDERED: *HR* Morphine Sulfate/PF 10 MG/10 ML AMPUL ONE (07:16)
[2020-04-05] MEDS ORDERED: Oxytocin 20 units/ LR 1000 mL 20 UNIT/1,000 ML BAG IVC ONE ×2 (07:17→10:00)
[2020-04-05] MEDS ORDERED: EPHEDrine 50 MG/ML VIAL ONE (07:18)
[2020-04-05] MEDS ORDERED: Acetaminophen IV 1,000 MG/100 ML BAG IVPB ONE (07:48)
[2020-04-05 08:56] LABS: Amphetamine Screen,Urine Negative ng/mL (Cutoff=1000); Barbiturate Screen,Urine Negative ng/mL (Cutoff=200); Benzodiazepines Screen,Urine Negative ng/mL (Cutoff=200); Cannabinoid Screen,Urine Negative ng/mL (Cutoff = 50); Cocaine Screen,Urine Negative ng/mL (Cutoff= 300); Opiate Screen,Urine Negative ng/mL (Cutoff=300); Phencyclidine Screen,Urine Negative ng/mL (Cutoff=25)
[2020-04-05] MEDS ORDERED: Oxytocin 20 units/ LR 1000 mL 20 UNIT/1,000 ML BAG IVC SCH (11:04)
[2020-04-05] MEDS ORDERED: Ringers Solution, Lactated 1,000 ML IVC SCH (11:04)
[2020-04-05] MEDS ORDERED: Simethicone 80 MG TAB.CHEW PO PRN (11:04)
[2020-04-05] MEDS ORDERED: Rho Immune Globulin 1,500 UNIT SYRINGE IM ONE (11:04)
[2020-04-05] MEDS ORDERED: Sennosides 8.6 MG TABLET PO PRN (11:04)
[2020-04-05] MEDS ORDERED: Metoclopramide 10 MG/2 ML VIAL IVP PRN (11:04)
[2020-04-05] MEDS ORDERED: NON-FORMULARY MEDICATION 1 EACH EACH (Prenatal Vits #90/Iron Fum/Fa [Prenatal Formula Tabl PO SCH (11:04)
[2020-04-05] MEDS: *HR* OxyCODONE/APAP 5/325 TABLET PO PRN ×2 (12:07→17:31)
[2020-04-05] MEDS: Ibuprofen 600 MG TABLET PO PRN ×2 (15:51→21:07)
[2020-04-06] MEDS: *HR* OxyCODONE/APAP 5/325 TABLET PO PRN ×5 (01:02→20:56)
[2020-04-06 05:28] LABS: Basophils % 0.3 %; Eosinophils # 0.1 K/mcL (0.0-0.6); Eosinophils % 0.4 %; Hematocrit 27.3 % (35.3-44.9); Immature Granulocytes % 0.7 % (0-4); Lymphocytes # 2.6 K/mcL (0.6-4.6); Lymphocytes % 18.9 %; Mean Corpuscular Hemoglobin 29.2 pg (28.0-33.3); Mean Corpuscular Volume 88.6 fL (83.0-100.0); Mean Platelet Volume 10.9 fL (9.4-12.4); Monocytes # 1.2 K/mcL (0.0-1.3); Monocytes % 8.6 %; Neutrophils # 9.8 K/mcL (1.6-8.9); Platelet Count 244 K/mcL (140-400); Red Blood Count 3.08 M/mcL (3.82-4.97); Red Cell Distribution Width 13.2 % (11.5-14.5); Segmented Neutrophils % 71.1 %; White Blood Count 13.8 K/mcL (4.3-11.1)
[2020-04-06] MEDS: Ibuprofen 600 MG TABLET PO PRN ×2 (06:59→20:56)
[2020-04-06] MEDS: Prenatal Vit/FA 1 EACH TABLET PO SCH (07:38)
[2020-04-07] MEDS: *HR* OxyCODONE/APAP 5/325 TABLET PO PRN ×4 (00:41→13:18)
[2020-04-07 07:59] VITALS: BP 119/75
[2020-04-07] MEDS: Ibuprofen 600 MG TABLET PO PRN (08:09)
[2020-04-07] MEDS: Prenatal Vit/FA 1 EACH TABLET PO SCH (08:10)
== END 2020-04-07 13:24 | disposition home or self-care (01) | DRG 788 ==
LOC: 1NENULAB 05:45 → 1NENUOBS 11:38
PROVIDERS: ADMIT Student in an Organized Health Care Education/Training Program; ATTEND Student in an Organized Health Care Education/Training Program